=== PATIENT | male | born 1980 | race Caucasian/White ===

== ENCOUNTER 2016-12-04 20:54 | Emergency (ER) | payer BC, OTHER ==
--- NOTE | 2016-12-04 21:02 | ER Document Report ---
ED Medical Screen (RME) - General Stated Complaint: POSSIBLE SWALLOWED FB Notes: patient is a 36 year old male who admits to FB stuck in his throat. states he was eating steak and feels like he cant get it down. happened within the past 45 minutes. speaking normally, NAD. I have greeted and performed a rapid initial assessment of this patient. A comprehensive ED assessment and evaluation of the patient, analysis of test results and completion of the medical decision making process will be conducted by additional ED providers. TRAVEL OUTSIDE OF THE [place] IN LAST 30 DAYS: No Physical Exam - Vital signs Vitals: Temp Pulse Resp BP Pulse Ox 98.7 F 100 24 H 141/92 H 97 12/04/16 21:02 12/04/16 21:02 12/04/16 21:02 12/04/16 21:02 12/04/16 21:02 Course - Vital Signs Vital signs: Temp Pulse Resp BP Pulse Ox 98.7 F 100 24 H 141/92 H 97 12/04/16 21:02 12/04/16 21:02 12/04/16 21:02 12/04/16 21:02 12/04/16 21:02
[2016-12-04] MEDS ORDERED: NITROGLYCERIN 0.4 MG/TAB 25 TAB/BOTTLE SL ONE (22:24)
--- NOTE | 2016-12-04 22:26 | ER Document Report ---
ED ENT - General Chief Complaint: Choked / Choking Stated Complaint: POSSIBLE SWALLOWED FB Time seen by provider: 22:26 Mode of Arrival: Ambulatory Information source: Patient TRAVEL OUTSIDE OF THE [place] IN LAST 30 DAYS: No - HPI Patient complains to provider of: Throat problem Onset: Just prior to arrival Onset/Duration: Sudden Quality of pain: Achy Severity: Mild Pain Level: 2 Similar symptoms previously: No Recently seen / treated by doctor: No Notes: Patient is a 36-year-old male with no past medical history who presents to the emergency room complaining of having a piece of steak stuck in his throat, states he was at a local restaurant eating dinner when the meat became lodged in his throat, he is been unable to swallow anything since, he denies any difficulty breathing, no history of similar symptoms previously - Related Data Allergies/Adverse Reactions: No Known Allergies Allergy (Unverified 12/04/16 23:51) Past Medical History - General Information source: Patient - Social History Smoking Status: Never Smoker Chew tobacco use (# tins/day): No Frequency of alcohol use: None Drug Abuse: None Family History: Reviewed & Not Pertinent Patient has suicidal ideation: No Patient has homicidal ideation: No Renal/ Medical History: Denies: Hx Peritoneal Dialysis Review of Systems - Review of Systems Constitutional: No symptoms reported EENT: See HPI Cardiovascular: No symptoms reported Respiratory: No symptoms reported Gastrointestinal: No symptoms reported Genitourinary: No symptoms reported Male Genitourinary: No symptoms reported Musculoskeletal: No symptoms reported Skin: No symptoms reported Hematologic/Lymphatic: No symptoms reported Neurological/Psychological: No symptoms reported -: Yes All other systems reviewed and negative Physical Exam - Vital signs Vitals: Temp Pulse Resp BP Pulse Ox 98.7 F 100 24 H 141/92 H 97 12/04/16 21:02 12/04/16 21:02 12/04/16 21:02 12/04/16 21:02 12/04/16 21:02 Interpretation: Normal - General General appearance: Appears well, Alert In distress: Mild - HEENT Head: Normocephalic, Atraumatic Eyes: Normal Conjunctiva: Normal Eyelashes: Normal Pupils: PERRL Nasal: Normal Mucous membranes: Moist Pharynx: Normal, Other - Patient is unable to swallow his own secretions, continuously spitting into an emesis bag Neck: Normal - Respiratory Respiratory status: No respiratory distress Chest status: Nontender Breath sounds: Normal Chest palpation: Normal - Cardiovascular Rhythm: Regular, Tachycardia - Abdominal Inspection: Normal Distension: No distension Bowel sounds: Normal Tenderness: Nontender Organomegaly: No organomegaly - Back Back: Normal - Extremities General upper extremity: Normal inspection General lower extremity: Normal inspection - Neurological Neuro grossly intact: Yes Cognition: Normal Orientation: AAOx4 [place] Coma Scale Eye Opening: Spontaneous [place] Coma Scale Verbal: Oriented [place] Coma Scale Motor: Obeys Commands Clau Coma Scale Total: 15 - Psychological Associated symptoms: Normal affect, Normal mood - Skin Skin Temperature: Warm Skin Moisture: Dry Skin Color: Normal Course - Re-evaluation Re-evalutation: 12/04/16 22:58 She was given sublingual nitroglycerin, IV glucagon and was asked to drink warm Pepsi, this procedure was successful in releasing the meat impaction - Vital Signs Vital signs: Temp Pulse Resp BP Pulse Ox 98.7 F 100 23 H 122/93 H 96 12/04/16 21:08 12/04/16 21:08 12/04/16 23:01 12/04/16 23:45 12/04/16 23:45 - Diagnostic Test Radiology reviewed: Image reviewed, Reports reviewed Discharge - Discharge Clinical Impression: Esophageal foreign body Qualifiers: Encounter type: initial encounter Qualified Code(s): T18.108A - Unspecified foreign body in esophagus causing other injury, initial encounter Condition: Stable Disposition: HOME, SELF-CARE Instructions: Esophageal Food Impaction ([facility]) Additional Instructions: Follow up with your primary care provider and a tax collector in one to 2 days. Return to the emergency room immediately if symptoms worsen or any additional concerns. Always take small bites of food and chew your food completely.
[2016-12-04] MEDS ORDERED: NITROGLYCERIN 0.4 MG/TAB 25 TAB/BOTTLE ONE (22:27)
[2016-12-04] MEDS ORDERED: GLUCAGON,HUMAN RECOMB 1 MG INJ IV ONE (22:30)
[2016-12-04 23:51] VITALS: BP 122/93
== END 2016-12-04 23:52 | disposition home or self-care (01) ==
LOC: ER 20:54
DX: T18.128A Food in esophagus causing other injury, initial encounter (principal); X58.XXXA Exposure to other specified factors, initial encounter
CPT/HCPCS: 99283; 96374; 71020; 70360; J1610

== ENCOUNTER 2020-08-14 15:11 | Emergency (ER) | payer BC ==
[2020-08-14 15:18] VITALS: BP 162/96
[2020-08-14] MEDS ORDERED: PREDNISONE 20 MG TABLET PO ONE (15:37)
--- NOTE | 2020-08-14 15:40 | ER Document Report ---
HPI - HPI Patient complains to provider of: Skin rash Time Seen by Provider: 08/14/20 15:31 Onset: Yesterday Onset/Duration: Gradual Pain Level: 4 Context: Patient states that he put a a deer stand up in a tree 2 days ago and was messing with some krista. Patient is concerned they may have been poison sima as yesterday he started develop a rash to exposed areas. Patient complains of skin rash to face and arms and neck. Patient denies any change in vision. Associated Symptoms: Other - Skin rash Exacerbated by: Denies Relieved by: Denies Similar symptoms previously: Yes Recently seen / treated by doctor: No - ROS ROS below otherwise negative: Yes Systems Reviewed and Negative: Yes All other systems reviewed and negative - CONSTITUTIONAL Constitutional: DENIES: Fever - EENT EENT: DENIES: Eye problems - RESPIRATORY Respiratory: DENIES: Coughing - DERM Skin Color: Erythema Skin Problems: Rash Past Medical History - General Information source: Patient - Social History Smoking Status: Never Smoker Chew tobacco use (# tins/day): No Frequency of alcohol use: None Drug Abuse: None Occupation: Packager Lives with: Family Family History: Reviewed & Not Pertinent - Medical History Medical History: Negative Renal/ Medical History: Denies: Hx Peritoneal Dialysis Past Surgical History: Reports: Hx Appendectomy, Hx Herniorrhaphy Vertical Provider Document - CONSTITUTIONAL Agree With Documented VS: Yes Exam Limitations: No Limitations General Appearance: WD/WN, No Apparent Distress - INFECTION CONTROL TRAVEL OUTSIDE OF THE [place] IN LAST 30 DAYS: No - HEENT HEENT: Atraumatic, Normal ENT Exam, Normocephalic - NECK Neck: Normal Inspection, Supple - RESPIRATORY Respiratory: Breath Sounds Normal, No Respiratory Distress - CARDIOVASCULAR Cardiovascular: Regular Rate, Regular Rhythm - BACK Back: Normal Inspection - MUSCULOSKELETAL/EXTREMETIES Musculoskeletal/Extremeties: MAEW - NEURO Level of Consciousness: Awake, Alert, Appropriate Motor/Sensory: No Motor Deficit - DERM Integumentary: Warm, Dry, Rash - Scattered erythematous maculopapular rash to bilateral upper extremities, facial area and right side of neck Course - Re-evaluation Re-evalutation: 08/14/20 15:43 Patient without any change in vision or eye symptoms at this time, discussed plan of care with patient. Patient encouraged to return as needed for any new or worsening symptoms. - Vital Signs Vital signs: Temp Pulse Resp BP Pulse Ox 98.6 F 92 18 162/96 H 97 08/14/20 15:17 08/14/20 15:17 08/14/20 15:17 08/14/20 15:17 08/14/20 15:17 Discharge - Discharge Clinical Impression: Contact dermatitis Qualifiers: Contact dermatitis type: unspecified Contact dermatitis trigger: non-food plants Qualified Code(s): L25.5 - Unspecified contact dermatitis due to plants, except food Condition: Stable Disposition: HOME, SELF-CARE Instructions: Poison Sima ([facility]), Topical Steroid Cream or Ointment ([facility]) Additional Instructions: Return immediately for any new or worsening symptoms Followup with your primary care provider, call tomorrow to make a followup appointment Use technu or Zanfel skin cleanser [id number] as directed to help with symptoms Prescriptions: Prednisone [Deltasone 5 mg Tablet] 5 mg PO ASDIR PRN #100 tablet PRN Reason: Hydroxyzine Pamoate [Vistaril 50 mg Capsule] 50 mg PO TID PRN #15 capsule PRN Reason: Referrals: [facility] [Provider Group] - Follow up as needed
== END 2020-08-14 15:50 | disposition home or self-care (01) ==
LOC: ER 15:11
DX: L25.5 Unspecified contact dermatitis due to plants, except food (principal)
CPT/HCPCS: 99283; J7512